=== PATIENT | male | born 1955 | race Caucasian/White ===

== ENCOUNTER → 2018-09-01 | Outpatient (CLI) | payer MEDICAID ==
[2018-09-01] MEDS: Sodium Chloride 0.9% 10 ML Syringe FLUSH ONE (08:34)
[2018-09-01] MEDS: Iopamidol 755 Mg/ML 100 ML Bottle IV SCH (08:35)
[2018-09-01] MEDS: Sodium Chloride 0.9% 100 ML IV SCH (08:35)
--- NOTE | 2018-09-01 18:45 | CRLCT ---
INDICATION: Bilateral carotid artery stenosis. TECHNIQUE: CTA of the neck was performed after the administration of intravenous contrast. Multiplanar Maximum Intensity Projections (MIPs) were created on a separate workstation at the request of the referring physician. COMPARISON: None available. FINDINGS: Angiographic findings: The aortic arch is mildly atherosclerotic. The configuration of the brachiocephalic vessels is typical. The subclavian and innominate arteries are moderately atherosclerotic without significant stenosis. There is marked, ulcerated, probably noncalcified atherosclerosis of the right carotid bifurcation that causes approximately 50 percent stenosis of the internal carotid artery origin by NASCET criteria. The right common, cervical internal, and external carotid arteries are otherwise mildly atherosclerotic without significant stenosis. There is marked, ulcerated, predominantly noncalcified atherosclerosis of the left carotid bifurcation that causes approximately 80 percent stenosis of the internal carotid artery origin by NASCET criteria. The left common, cervical internal, and external carotid arteries are otherwise mildly atherosclerotic without significant stenosis. There is moderate atherosclerosis of the carotid siphons without significant stenosis. The vertebral arteries are right dominant. The cervical vertebral arteries are mildly atherosclerotic with multifocal mild stenoses bilaterally. Non-angiographic findings: There is no cervical lymphadenopathy. The thyroid and salivary glands are normal. The muscles of the neck are normal. Fascial planes are preserved and the deep spaces of the neck are normal. The visualized airway is widely patent. The visualized lungs are clear. There are no suspicious lytic or blastic lesions. IMPRESSION: 1. Marked, ulcerated, predominantly noncalcified atherosclerosis of the left carotid bifurcation that causes approximately 80 percent stenosis of the internal carotid artery origin by NASCET criteria 2. Marked, ulcerated, probably noncalcified atherosclerosis of the right carotid bifurcation that causes approximately 50 percent stenosis of the internal carotid artery origin by NASCET criteria Please note that all CT scans at this facility use dose modulation, iterative reconstruction, and/or weight-based dosing when appropriate to reduce radiation dose to as low as reasonably achievable. Dictated by Yassine Kurtz MD @ Sep 01 2018 6:43PM Signed by Dr. Yassine Kurtz @ Sep 01 2018 6:43PM
== END ==
LOC: JP.CT 07:50
PROVIDERS: ATTEND Surgery
DX: I65.23 Occlusion and stenosis of bilateral carotid arteries (principal)
CPT/HCPCS: 36415; 70498; 82565; J7030; Q9967; J7050